=== PATIENT | female | born 1940 | race Caucasian/White ===

== ENCOUNTER 2018-11-27 06:39 | Inpatient (IN) | payer OTHER, BC ==
[~2018-11-27] VITALS: Ht 165.1 cm; Wt 46.7 kg
[2018-11-27 06:40] VITALS: BP_SYST 146
[2018-11-27] MEDS ORDERED: KETOROLAC TROMETHAMINE 60 MG/2 ML VIAL IM ONE (07:30)
[2018-11-27] MEDS ORDERED: MORPHINE 4 MG/ML INJ. SYRINGE IVP ONE (09:30)
[2018-11-27] MEDS ORDERED: ONDANSETRON HCL 4 MG/2 ML VIAL IVP ONE (09:30)
[2018-11-27 10:30] LABS: ANION GAP 7 (5-15); CALCIUM 8.5 mg/dL (8.4-11.0); CHLORIDE 92 mmol/L (98-107); CREATININE 0.47 mg/dL (0.55-1.30); GLUCOSE 120 mg/dL (70-99); POTASSIUM 4.1 mmol/L (3.5-5.1); SODIUM SERUM 125 mmol/L (136-145); UREA NITROGEN, BLOOD 8 mg/dL (8-21)
[2018-11-27 10:31] LABS: HEMATOCRIT 41.7 % (36-48); HEMOGLOBIN 13.6 g/dL (12.0-16.0); MEAN CORPUSCULAR HEMOGLOBIN 29 pg (27-31); MEAN CORPUSCULAR HGB CONC 33 % (32-36); MEAN CORPUSCULAR VOLUME 90 fL (79.0-98.0); RED BLOOD CELL COUNT(AUTO) 4.66 MIL/uL (4.2-6.2); WHITE BLOOD COUNT (AUTO) 14.2 K/uL (4.8-10.8)
[2018-11-27 10:32] LABS: BASOPHILS % (AUTO) 0.2 % (0.0-2.0); EOSINOPHILS # (AUTO) 0.1 K/uL (0.0-0.4); EOSINOPHILS % (AUTO) 0.4 % (0.0-4.0); LYMPHOCYTES # (AUTO) 0.7 K/uL (1.0-5.5); LYMPHOCYTES % (AUTO) 4.8 % (20.5-51.5); MONOCYTES % (AUTO) 7.2 % (1.7-9.3); NEUTROPHILS # (AUTO) 12.4 K/uL (1.8-7.7); NEUTROPHILS % (AUTO) 87.4 % (40.0-70.0); PLATELET COUNT (AUTO) 247 K/uL (130-430)
[2018-11-27 10:35] LABS: ALANINE AMINOTRANSFERASE 33 U/L (12-78); ALBUMIN 3.6 g/dL (3.4-4.8); ASPARTATE AMINOTRANSFERASE 29 U/L (10-37); TOTAL BILIRUBIN 0.7 mg/dL (0.0-1.0)
[2018-11-27] MEDS ORDERED: BET(AF)80 PO (10:56)
[2018-11-27] MEDS ORDERED: LOSA25TA3 PO (10:56)
[2018-11-27] MEDS ORDERED: CYCL25CA12 PO (10:56)
[2018-11-27] MEDS ORDERED: AMLO5TAB4 PO (10:56)
[2018-11-27] MEDS ORDERED: NACL 0.9% 1,000 ML IV ONE (11:00)
[2018-11-27] MEDS ORDERED: TEMAZEPAM 15 MG CAPSULE PO PRN (11:15)
[2018-11-27] MEDS ORDERED: MORPHINE 4 MG/ML INJ. SYRINGE IVP PRN (11:15)
[2018-11-27 12:05] VITALS: BP_SYST 127
[2018-11-27] MEDS ORDERED: LOSARTAN POTASSIUM 50 MG TABLET (COZAAR) PO ONE (12:09)
[2018-11-27 16:34] VITALS: BP_SYST 119
[2018-11-27] MEDS ORDERED: AMOXICILLIN/CLAVULANATE POTASSIUM 500 MG TABLET PO ONE (17:45)
[2018-11-27] MEDS ORDERED: FLUTICASONE PROPIONATE 50 mCg/SPRAY 16 GM NS ONE (17:45)
[2018-11-27] MEDS: NACL 0.9% 1,000 ML IV SCH (18:38)
[2018-11-27] MEDS: METOCLOPRAMIDE HCL 10 MG/2 ML VIAL IVP PRN (18:51)
[2018-11-27] MEDS ORDERED: DOCU250C14 PO (19:08)
[2018-11-27] MEDS ORDERED: VITD2000 PO (19:08)
[2018-11-27] MEDS ORDERED: CYAN100T PO (19:08)
[2018-11-27 20:00] VITALS: BP_SYST 139
[2018-11-27 20:37] LABS: BILIRUBIN,URINE NEGATIVE (NEGATIVE); BLOOD, URINE NEGATIVE (NEGATIVE); CLARITY/URINE CLEAR (CLEAR); COLOR,URINE YELLOW (YELLOW); GLUCOSE,URINE NEGATIVE (NEGATIVE); KETONES,URINE NEGATIVE (NEGATIVE); LEUKOCYTE ESTERASE ,URINE NEGATIVE (NEGATIVE); NITRITE, URINE NEGATIVE (NEGATIVE); PROTEIN URINE NEGATIVE (NEGATIVE); UROBILINOGEN,URINE 0.2 (0.2-1.0)
[2018-11-27] MEDS: SOTALOL HCL 80 MG TABLET PO SCH (20:48)
[2018-11-27] MEDS: amLODIPine BESYLATE 5 MG TABLET PO SCH (20:49)
[2018-11-27] MEDS: LOSARTAN POTASSIUM 50 MG TABLET (COZAAR) PO SCH (20:49)
[2018-11-27] MEDS: HYDROcodone/ACETAMIN 7.5-325 MG TAB PO PRN (20:50)
[2018-11-27] MEDS: CYCLOSPORINE 25 MG PO SCH (20:50)
[2018-11-27] MEDS: AMOXICILLIN/CLAVULANATE POTASSIUM 500 MG TABLET PO SCH (20:55)
[2018-11-27] MEDS ORDERED: SANDIMMUNE PO SCH (21:00)
[2018-11-27] MEDS ORDERED: LOSARTAN POTASSIUM 50 MG TABLET (COZAAR) PO SCH (21:00)
[2018-11-27 23:37] VITALS: BP_SYST 121
[2018-11-28] MEDS: METOCLOPRAMIDE HCL 10 MG/2 ML VIAL IVP PRN ×2 (01:14→08:53)
[2018-11-28] MEDS: AMOXICILLIN/CLAVULANATE POTASSIUM 500 MG TABLET PO SCH ×3 (05:40→21:22)
[2018-11-28] MEDS: HYDROcodone/ACETAMIN 7.5-325 MG TAB PO PRN ×3 (05:41→20:00)
[2018-11-28 06:45] LABS: ANION GAP 7 (5-15); CALCIUM 7.7 mg/dL (8.4-11.0); CHLORIDE 96 mmol/L (98-107); CREATININE 0.51 mg/dL (0.55-1.30); GLUCOSE 98 mg/dL (70-99); POTASSIUM 4.1 mmol/L (3.5-5.1); SODIUM SERUM 127 mmol/L (136-145); UREA NITROGEN, BLOOD 11 mg/dL (8-21)
[2018-11-28 07:05] LABS: RED BLOOD CELL COUNT(AUTO) 3.95 MIL/uL (4.2-6.2); WHITE BLOOD COUNT (AUTO) 8.5 K/uL (4.8-10.8)
[2018-11-28 07:06] LABS: BASOPHILS % (AUTO) 0.4 % (0.0-2.0); EOSINOPHILS % (AUTO) 2.5 % (0.0-4.0); HEMATOCRIT 35.2 % (36-48); HEMOGLOBIN 11.8 g/dL (12.0-16.0); LYMPHOCYTES # (AUTO) 0.7 K/uL (1.0-5.5); LYMPHOCYTES % (AUTO) 7.9 % (20.5-51.5); MEAN CORPUSCULAR HEMOGLOBIN 30 pg (27-31); MEAN CORPUSCULAR HGB CONC 34 % (32-36); MEAN CORPUSCULAR VOLUME 89 fL (79.0-98.0); MONOCYTES % (AUTO) 9.1 % (1.7-9.3); NEUTROPHILS # (AUTO) 6.8 K/uL (1.8-7.7); NEUTROPHILS % (AUTO) 80.1 % (40.0-70.0); PLATELET COUNT (AUTO) 209 K/uL (130-430); RED CELL DISTRIBUTION WIDTH 13.1 % (9.0-15.0)
[2018-11-28 07:07] LABS: EOSINOPHILS # (AUTO) 0.2 K/uL (0.0-0.4); MONOCYTES # (AUTO) 0.8 K/uL (0.0-1.0)
[2018-11-28 08:40] VITALS: BP_SYST 127
[2018-11-28] MEDS: amLODIPine BESYLATE 5 MG TABLET PO SCH ×2 (08:52→21:22)
[2018-11-28] MEDS: LOSARTAN POTASSIUM 50 MG TABLET (COZAAR) PO SCH ×2 (08:52→21:21)
[2018-11-28] MEDS: SOTALOL HCL 80 MG TABLET PO SCH ×2 (08:52→21:21)
[2018-11-28] MEDS: CYCLOSPORINE 25 MG PO SCH ×2 (08:53→21:24)
[2018-11-28] MEDS: FLUTICASONE PROPIONATE 50 mCg/SPRAY 16 GM NS SCH (08:59)
[2018-11-28 12:35] VITALS: BP_SYST 124
[2018-11-28] MEDS: NACL 0.9% 1,000 ML IV SCH (12:53)
[2018-11-28] MEDS: SODIUM CHLORIDE 500 MG TABLET PO SCH ×2 (14:17→21:23)
[2018-11-28] MEDS ORDERED: RIVAROXABAN 10 MG TABLET PO ONE (15:00)
[2018-11-28 16:20] VITALS: BP_SYST 122
[2018-11-28] MEDS: METOCLOPRAMIDE HCL 10 MG TABLET PO SCH ×2 (16:37→21:23)
[2018-11-28 20:00] VITALS: BP_SYST 137
[2018-11-28] MEDS: TEMAZEPAM 15 MG CAPSULE PO SCH (21:22)
[2018-11-29 02:20] VITALS: BP_SYST 114
[2018-11-29] MEDS: AMOXICILLIN/CLAVULANATE POTASSIUM 500 MG TABLET PO SCH (06:13)
[2018-11-29] MEDS: METOCLOPRAMIDE HCL 10 MG TABLET PO SCH ×4 (06:13→21:39)
[2018-11-29 06:31] LABS: ANION GAP 6 (5-15); CALCIUM 7.8 mg/dL (8.4-11.0); CHLORIDE 97 mmol/L (98-107); CREATININE 0.45 mg/dL (0.55-1.30); GLUCOSE 91 mg/dL (70-99); POTASSIUM 3.2 mmol/L (3.5-5.1); SODIUM SERUM 129 mmol/L (136-145); THYROID STIMULATING HORMONE 1.37 uIu/mL (0.34-4.82); UREA NITROGEN, BLOOD 5 mg/dL (8-21)
[2018-11-29 08:10] VITALS: BP_SYST 132
[2018-11-29] MEDS ORDERED: HYDROcodone/ACETAMIN 10-325 MG TAB PO PRN (08:30)
[2018-11-29] MEDS: SODIUM CHLORIDE 500 MG TABLET PO SCH ×3 (09:04→21:37)
[2018-11-29] MEDS: HYDROcodone/ACETAMIN 7.5-325 MG TAB PO PRN ×3 (09:05→23:51)
[2018-11-29] MEDS: RIVAROXABAN 10 MG TABLET PO SCH (09:06)
[2018-11-29] MEDS: LOSARTAN POTASSIUM 50 MG TABLET (COZAAR) PO SCH ×2 (09:07→21:39)
[2018-11-29] MEDS: amLODIPine BESYLATE 5 MG TABLET PO SCH ×2 (09:07→21:37)
[2018-11-29] MEDS: SOTALOL HCL 80 MG TABLET PO SCH ×2 (09:08→21:38)
[2018-11-29] MEDS: PANTOPRAZOLE SODIUM 40 MG TAB PO SCH (09:08)
[2018-11-29] MEDS: CYCLOSPORINE 25 MG PO SCH ×2 (09:10→21:40)
[2018-11-29] MEDS: FLUTICASONE PROPIONATE 50 mCg/SPRAY 16 GM NS SCH (09:10)
[2018-11-29] MEDS: NACL 0.9% 1,000 ML IV SCH (09:11)
[2018-11-29] MEDS ORDERED: POTASSIUM CHLORIDE 40 MEQ in NS 250 ML IV ONE (09:30)
[2018-11-29 11:29] VITALS: BP_SYST 127
[2018-11-29 15:39] VITALS: BP_SYST 143
[2018-11-29] MEDS: AMOXICILLIN 500 MG CAPSULE PO SCH ×2 (15:49→21:36)
[2018-11-29 20:00] VITALS: BP_SYST 131
[2018-11-29] MEDS: TEMAZEPAM 15 MG CAPSULE PO SCH (21:38)
[2018-11-30 01:47] VITALS: BP_SYST 127
[2018-11-30] MEDS: NACL 0.9% 1,000 ML IV SCH (05:24)
[2018-11-30] MEDS: AMOXICILLIN 500 MG CAPSULE PO SCH ×2 (06:20→13:44)
[2018-11-30] MEDS: METOCLOPRAMIDE HCL 10 MG TABLET PO SCH ×2 (06:20→11:34)
[2018-11-30] MEDS: PANTOPRAZOLE SODIUM 40 MG TAB PO SCH (08:42)
[2018-11-30] MEDS: SODIUM CHLORIDE 500 MG TABLET PO SCH (08:42)
[2018-11-30] MEDS: LOSARTAN POTASSIUM 50 MG TABLET (COZAAR) PO SCH (08:42)
[2018-11-30] MEDS: amLODIPine BESYLATE 5 MG TABLET PO SCH (08:43)
[2018-11-30] MEDS: SOTALOL HCL 80 MG TABLET PO SCH (08:43)
[2018-11-30] MEDS: RIVAROXABAN 10 MG TABLET PO SCH (08:44)
[2018-11-30] MEDS: HYDROcodone/ACETAMIN 7.5-325 MG TAB PO PRN ×2 (08:44→13:45)
[2018-11-30] MEDS: FLUTICASONE PROPIONATE 50 mCg/SPRAY 16 GM NS SCH (08:45)
[2018-11-30] MEDS: CYCLOSPORINE 25 MG PO SCH (08:46)
[2018-11-30 10:05] LABS: ANION GAP 9 (5-15); CALCIUM 8.4 mg/dL (8.4-11.0); CHLORIDE 99 mmol/L (98-107); CREATININE 0.52 mg/dL (0.55-1.30); GLUCOSE 105 mg/dL (70-99); POTASSIUM 3.6 mmol/L (3.5-5.1); SODIUM SERUM 135 mmol/L (136-145); UREA NITROGEN, BLOOD 5 mg/dL (8-21)
[2018-11-30 10:23] VITALS: BP_SYST 127
[2018-11-30] MEDS ORDERED: SODI1TAB24 PO (11:18)
[2018-11-30] MEDS ORDERED: HYDR-3921 PO (11:18)
[2018-11-30] MEDS ORDERED: PRO40 PO (11:18)
[2018-11-30] MEDS ORDERED: METO-290 PO (11:18)
[2018-11-30] MEDS ORDERED: TEMA15CA5 PO (11:18)
[2018-11-30] MEDS ORDERED: RIVA10TA PO (11:18)
[2018-11-30] MEDS ORDERED: AMOX500C2 PO (11:18)
[2018-11-30] MEDS ORDERED: FLUT16SP16 NS (11:18)
[2018-11-30 12:11] VITALS: BP_SYST 132
[2018-11-30 14:26] VITALS: BP_SYST 132
== END 2018-11-30 14:55 | DRG 536 ==
LOC: SED 06:39 → SMU 11:12
PROVIDERS: ADMIT Internal Medicine; ATTEND Internal Medicine
DX: S32.591A Other specified fracture of right pubis, initial encounter for closed fracture (principal); E87.1 Hypo-osmolality and hyponatremia; E44.0 Moderate protein-calorie malnutrition; Z94.4 Liver transplant status; Z68.1 Body mass index [BMI] 19.9 or less, adult; J01.90 Acute sinusitis, unspecified; I10 Essential (primary) hypertension; G89.29 Other chronic pain; E87.6 Hypokalemia; I48.91 Unspecified atrial fibrillation; J30.9 Allergic rhinitis, unspecified; Z90.710 Acquired absence of both cervix and uterus; M54.5 Low back pain; W01.0XXA Fall on same level from slipping, tripping and stumbling without subsequent striking against object, initial encounter; Y93.89 Activity, other specified; Y92.89 Other specified places as the place of occurrence of the external cause; Y99.8 Other external cause status
CPT/HCPCS: 36415; 71045; 73502; 73700-TC; 80048; 80053; 81003; 82533; 83735-TC; 83880; 84443-TC; 85025; 93005; 96361; 96372; 96374; 96375; 99285; J1885; J2270; J2405; J2765; J3480; J7030; J7050; J7515; J8597

== ENCOUNTER 2020-07-26 10:49 | Emergency (ER) | payer OTHER, MEDICARE ==
[~2020-07-26] VITALS: Ht 162.6 cm; Wt 45.4 kg
[~2020-07-26 10:49] MED LIST: AMLO5TAB4 PO; AMOX500C2 PO; BET(AF)80 PO; CYAN100T44 PO; CYCL25CA12 PO; FLUT16SP16 NS; LOSA25TA3 PO; METO-290 PO; PRO40 PO; RIVA10TA PO; SODI1TAB24 PO; TEMA15CA5 PO; VITD2000 PO
[2020-07-26 10:57] VITALS: BP_SYST 111
--- NOTE | 2020-07-26 11:00 | NUR ---
Patient to ER bed 3 to gown for evaluation. Side rails up.
--- NOTE | 2020-07-26 11:10 | NUR ---
pt arrives from home w/ diarrhea x 1 wk. This am pt noticied mucous in her stool. Pt was on antibiotics for a UTI and sinus infection. Pt noticied the diarrhea on the 3 day of being on anitbiotics. Pt stopped the antibiotics approx 5 days ago. Pt denies N/V and fever.
--- NOTE | 2020-07-26 11:16 | NUR ---
ER Dr. Aguilar at bedside examining patient.
[2020-07-26] MEDS ORDERED: NS 500 ML IV ONE (11:30)
--- NOTE | 2020-07-26 11:30 | NUR ---
# 20 gauge angiocath placed to LAC. Use of asceptic technique. Opsite placed over site. Blood return noted. Blood for lab drawn from site. Flushed with 10 cc of normal saline. No evidence of infiltration noted. Patient tolerated well.
--- NOTE | 2020-07-26 11:38 | NUR ---
Patient transported to radiology via , accompanied by install technician.
[2020-07-26 11:43] LABS: BASOPHILS # (AUTO) 0.1 K/uL (0.0-0.2); BASOPHILS % (AUTO) 0.8 % (0.0-2.0); EOSINOPHILS # (AUTO) 0.1 K/uL (0.0-0.4); EOSINOPHILS % (AUTO) 0.8 % (0.0-4.0); HEMATOCRIT 37.4 % (36-48); HEMOGLOBIN 12.3 g/dL (12.0-16.0); LYMPHOCYTES # (AUTO) 0.8 K/uL (1.0-5.5); LYMPHOCYTES % (AUTO) 11.2 % (20.5-51.5); MEAN CORPUSCULAR HEMOGLOBIN 27 pg (27-31); MEAN CORPUSCULAR HGB CONC 33 % (32-36); MEAN CORPUSCULAR VOLUME 83 fL (79.0-98.0); MONOCYTES # (AUTO) 0.8 K/uL (0.0-1.0); MONOCYTES % (AUTO) 11.2 % (1.7-9.3); NEUTROPHILS # (AUTO) 5.2 K/uL (1.8-7.7); PLATELET COUNT (AUTO) 295 K/uL (130-430); RED BLOOD CELL COUNT(AUTO) 4.49 MIL/uL (4.2-6.2); RED CELL DISTRIBUTION WIDTH 14.7 % (9.0-15.0); WHITE BLOOD COUNT (AUTO) 6.8 K/uL (4.8-10.8)
[2020-07-26 12:03] LABS: ANION GAP 8 (5-15); CALCIUM 8.4 mg/dL (8.4-11.0); CHLORIDE 93 mmol/L (98-107); CREATININE 0.52 mg/dL (0.55-1.30); GLUCOSE 119 mg/dL (70-99); POTASSIUM 3.8 mmol/L (3.5-5.1); SODIUM SERUM 129 mmol/L (136-145); UREA NITROGEN, BLOOD 5 mg/dL (8-21)
[2020-07-26 12:07] LABS: PROTHROMBIN TIME 10.4 SECS (9.5-12.5)
[2020-07-26 12:09] LABS: ALANINE AMINOTRANSFERASE 14 U/L (12-78); ALBUMIN 3.5 g/dL (3.4-4.8); ASPARTATE AMINOTRANSFERASE 21 U/L (10-37); TOTAL BILIRUBIN 0.6 mg/dL (0.0-1.0)
[2020-07-26 12:15] LABS: BILIRUBIN,URINE NEGATIVE (NEGATIVE); BLOOD, URINE NEGATIVE (NEGATIVE); CLARITY/URINE CLEAR (CLEAR); COLOR,URINE YELLOW (YELLOW); GLUCOSE,URINE NEGATIVE (NEGATIVE); KETONES,URINE NEGATIVE (NEGATIVE); LEUKOCYTE ESTERASE ,URINE 1+ (NEGATIVE); NITRITE, URINE NEGATIVE (NEGATIVE); PROTEIN URINE NEGATIVE (NEGATIVE); UROBILINOGEN,URINE 0.2 (0.2-1.0)
[2020-07-26 12:28] LABS: BACTERIA,URINE MODERATE /HPF (None Seen); RBC,URINE 0-3 /HPF (0-3)
--- NOTE | 2020-07-26 13:15 | NUR ---
Patient given written and verbal discharge instructions and verbalizes understanding. ER MD discussed with patient the results and treatment provided. Patient in stable condition. ID arm band removed. IV catheter removed intact and dressing applied, no active bleeding. Rx of Cipro and Bacitracin given. Patient educated on pain management and to follow up with PMD. Pain Scale 3/10. Opportunity for questions provided and answered. Medication side effect fact sheet provided.
[2020-07-26 13:56] VITALS: BP_SYST 111
== END 2020-07-26 13:15 | disposition home or self-care (01) ==
LOC: SED 10:49
DX: N39.0 Urinary tract infection, site not specified (principal); R19.7 Diarrhea, unspecified; I10 Essential (primary) hypertension; Z79.899 Other long term (current) drug therapy
CPT/HCPCS: 36415; 74176; 80053; 81000; 85025; 85610; 85730; 87086; 96360; 99284; J7040

== ENCOUNTER 2022-02-05 15:44 | Emergency (ER) | payer OTHER, MEDICARE ==
[~2022-02-05] VITALS: Ht 162.6 cm; Wt 45.4 kg
[2022-02-05 15:44] VITALS: BP_SYST 136
[~2022-02-05 15:44] MED LIST changes: -AMOX500C2 PO; +ASPI-1393 PO; -CYCL25CA12 PO; +CYCL25CA24 PO; +LACT1CAP57 PO; +LEVO500T90 PO; -LOSA25TA3 PO; -METO-290 PO; -PRO40 PO; -RIVA10TA PO; -SODI1TAB24 PO; -TEMA15CA5 PO; +VFE200 PO
--- NOTE | 2022-02-05 15:44 | NUR ---
Patient to ER bed 03 to gown for evaluation. Side rails up. Report given to R[facility] AND RICK GAITAN
--- NOTE | 2022-02-05 16:00 | NUR ---
PATIENT BROUGHT WITH DAUGHTER ASSISTED FROM [employer] INTO WHEELCHAIR. PATIENT IS AOX4 FROM HOME COMPLAINING OF MID BACK PAIN, NON TRAUMATIC. PATIENT HAS HISTORY OF UPPER BACK FRACTURE BUT REPORTS PAIN DIFFUSE AND WORSE THAN NORMAL. PATIENT REPORTS PAIN WORSENS WHEN SUPINE, WALKING AND SITTING. DENIES PAIN AT REST. PATIENT SITTING IN GURNEY AT 70 DEGREES, COMFORTABLE. DENIES ANY PAIN AT THIS TIME.
--- NOTE | 2022-02-05 16:10 | NUR ---
ER Dr. FOSTER at bedside examining patient.
[2022-02-05] MEDS ORDERED: MORPHINE 4 MG INJ. 4 MG/ML VIAL IM ONE (16:15)
--- NOTE | 2022-02-05 16:20 | NUR ---
Lab at bedside for blood draw.
[2022-02-05 16:54] LABS: CALCIUM 8.2 mg/dL (8.4-11.0); CHLORIDE 93 mmol/L (98-107); CREATININE 0.65 mg/dL (0.55-1.30); GLUCOSE 115 mg/dL (70-99); SODIUM SERUM 127 mmol/L (136-145); UREA NITROGEN, BLOOD 13 mg/dL (8-21)
--- NOTE | 2022-02-05 16:55 | NUR ---
CT scan completed.
[2022-02-05 17:02] LABS: ALANINE AMINOTRANSFERASE 13 U/L (12-78); ANION GAP 6 (5-15); ASPARTATE AMINOTRANSFERASE 17 U/L (10-37); TOTAL BILIRUBIN 0.3 mg/dL (0.0-1.0)
[2022-02-05 17:05] LABS: BASOPHILS # (AUTO) 0.1 K/uL (0.0-0.2); BASOPHILS % (AUTO) 0.6 % (0.0-2.0); EOSINOPHILS # (AUTO) 0.1 K/uL (0.0-0.4); EOSINOPHILS % (AUTO) 1.6 % (0.0-4.0); HEMATOCRIT 34.4 % (36-48); HEMOGLOBIN 11.1 g/dL (12.0-16.0); LYMPHOCYTES # (AUTO) 0.5 K/uL (1.0-5.5); LYMPHOCYTES % (AUTO) 5.8 % (20.5-51.5); MEAN CORPUSCULAR HEMOGLOBIN 25 pg (27-31); MEAN CORPUSCULAR HGB CONC 32 % (32-36); MEAN CORPUSCULAR VOLUME 78 fL (79.0-98.0); MONOCYTES % (AUTO) 11.3 % (1.7-9.3); NEUTROPHILS # (AUTO) 6.9 K/uL (1.8-7.7); NEUTROPHILS % (AUTO) 80.7 % (40.0-70.0); PLATELET COUNT (AUTO) 303 K/uL (130-430); RED BLOOD CELL COUNT(AUTO) 4.42 MIL/uL (4.2-6.2); RED CELL DISTRIBUTION WIDTH 15.6 % (9.0-15.0); WHITE BLOOD COUNT (AUTO) 8.5 K/uL (4.8-10.8)
[2022-02-05 17:09] LABS: C-REACTIVE PROTEIN QUANT 2.5 mg/dL (0-0.5)
--- NOTE | 2022-02-05 17:35 | NUR ---
Pt resting quietly in no distress and awaiting disposition.
[2022-02-05] MEDS ORDERED: SOM350 PO (18:15)
[2022-02-05 18:53] VITALS: BP_SYST 121
--- NOTE | 2022-02-05 19:04 | NUR ---
Patient given written and verbal discharge instructions and verbalizes understanding. ER Dr. Rex FREDREICK discussed with patient the results and treatment provided. Patient in stable condition. ID arm band removed. Rx of Carisoprodol given. Patient educated on pain management and to follow up with PMD. Pain Scale 4/10. Opportunity for questions provided and answered. Medication side effect fact sheet provided.
== END 2022-02-05 19:02 | disposition home or self-care (01) ==
LOC: SED 15:44
DX: M80.88XA Other osteoporosis with current pathological fracture, vertebra(e), initial encounter for fracture (principal); M54.50 Low back pain, unspecified; I10 Essential (primary) hypertension; Z88.5 Allergy status to narcotic agent
CPT/HCPCS: 36415; 72131; 76376; 80053; 81002; 85025; 86140; 96372; 99284; J2270